=== PATIENT | male | born 1960 | race Caucasian/White ===

== ENCOUNTER 2018-09-20 06:44 | Inpatient (IN) | payer OTHER ==
[~2018-09-20 06:44] MED LIST: Acetaminophen 1,000 MG in Premix Bag 1 BAG IV SCH; Famotidine 20 MG/2 ML SDV IVPUSH SCH; Ropivacaine 49.25 ML, Ketorolac 30 MG, EPINEPHrine 0.5 MG, cloNIDine 80 MCG in Sodium C... INJECT SCH; Scopolamine 1.5 MG Transdermal Patch TRDERM SCH
[2018-09-20] MEDS: Lactated Ringers 1,000 ML IV SCH ×2 (07:45→21:52)
[2018-09-20] MEDS ORDERED: Tranexamic Acid 2,000 MG in Sodium Chloride 0.9% 100 ML IV ONE (08:00)
[2018-09-20] MEDS ORDERED: ceFAZolin 2 GM in Premix Bag 1 BAG IV SCH (08:00)
--- NOTE | 2018-09-20 08:24 | PCM.PREANE ---
Preanesthetic Assessment - Procedure Proposed Procedure: left total knee replacement - Anesthesia/Transfusion/Family Hx Anesthesia History: Prior Anesthesia Without Reaction (severe bradycardia with colonoscopy) Other Type of Anesthesia Reaction Comment: Denies any known problem in past, no known family hx: problems Family History of Anesthesia Reaction: No Transfusion History: No Prior Transfusion(s) - Review of Systems General: No Symptoms Pulmonary: No Symptoms Cardiovascular: Other (HTN, high cholesterol) Gastrointestinal: Other (stomach flu two weeks ago) Neurological: No Symptoms Other: Reports: None - Physical Assessment NPO Status Date: 09/20/18 NPO Status Time: 00:00 O2 Sat by Pulse Oximetry: 96 Respiratory Rate: 16 Vital Signs: Last Vital Signs Temp 98.4 F 09/20/18 07:25 Pulse 62 09/20/18 07:25 Resp 16 09/20/18 07:25 BP 134/95 H 09/20/18 07:25 Pulse Ox 96 09/20/18 07:25 Height: 5 ft 11 in Weight: 113.398 kg ASA Class: 2 Mental Status: Alert & Oriented x3 Airway Class: Mallampati = 2 Dentition: Reports: Normal Dentition ROM/Head Extension: Full Lungs: Clear to Auscultation, Normal Respiratory Effort Cardiovascular: Regular Rate, Regular Rhythm - Allergies Allergies/Adverse Reactions: Allergies Allergy/AdvReac Type Severity Reaction Status Date / Time No Known Allergies Allergy Verified 09/16/18 09:27 - Blood Blood Available: No Product(s) Available: None - Anesthesia Plan Pre-Op Medication Ordered: None - Acknowledgements Anesthesia Type Planned: Spinal Pt an Appropriate Candidate for the Planned Anesthesia: Yes Alternatives and Risks of Anesthesia Discussed w Pt/Guardian: Yes Pt/Guardian Understands and Agrees with Anesthesia Plan: Yes PreAnesthesia Questionnaire HEENT History: Reports: Other (See Below) Other HEENT History: wears glasses Cardiovascular History: Reports: High Cholesterol, Hypertension Respiratory History: Reports: None Gastrointestinal History: Reports: None Other Gastrointestinal History: History ADenocarcinoma colon polyp Genitourinary History: Reports: None, Other (See Below) Musculoskeletal History: Reports: Osteoarthritis Neurological History: Reports: None Psychiatric History: Reports: None Endocrine/Metabolic History: Reports: Obesity/BMI 30+ Hematologic History: Reports: None Immunologic History: Reports: None Oncologic (Cancer) History: Reports: None Dermatologic History: Reports: Other (See Below) Other Dermatologic History: has a bleeding spot on his back ("mole")- will be removed by Primary Care doctor - Past Surgical History GI Surgical History: Reports: Colonoscopy Musculoskeletal Surgical History: Reports: Arthroscopic Knee - SUBSTANCE USE Smoking Status *Q: Current Every Day Smoker Tobacco Use Within Last Twelve Months: Smokeless Tobacco Recreational Drug Use History: No - HOME MEDS Home Medications: Home Meds Chlorthalidone 12.5 mg PO BRK 10/20/14 [History] Lisinopril 40 mg PO QAM 10/20/14 [History] atorvaSTATin Calcium [Atorvastatin Calcium] 20 mg PO DAILY 10/20/14 [History] Aspirin [Low Dose Aspirin EC] 81 mg PO DAILY 09/20/18 [History] Multivitamin [Daily Multiple Vitamin] 1 tab PO DAILY 09/20/18 [History] - CURRENT (IN HOUSE) MEDS Current Meds: Current Medications Famotidine (Pepcid) 40 mg IVPUSH ONARRIVE [facility] Last Admin: 09/20/18 07:51 Dose: 40 mg Acetaminophen 1,000 mg/ Premix 100 mls @ 400 mls/hr IV ONARRIVE [facility] Last Admin: 09/20/18 07:51 Dose: 400 mls/hr Cefazolin Sodium/Dextrose 2 gm (/ Premix) 50 mls @ 100 mls/hr IV ONCALL [facility] Ropivacaine 49.25 ml/Ketorolac Tromethamine 30 mg/Epinephrine HCl 0.5 mg/ Clonidine HCl 80 mcg/ Sodium Chloride 75 mls @ 50 mls/sec INJECT ASDIRECTED [facility] Lactated Ringer's (Ringers, Lactated) 1,000 mls @ 100 mls/hr IV ASDIRECTED [facility] Scopolamine (Transderm-Scop) 1.5 mg TRDERM ONARRIVE [facility] Last Admin: 09/20/18 07:51 Dose: 1.5 mg Discontinued Medications Tranexamic Acid 2,000 mg/ (Sodium Chloride) 120 mls @ 600 mls/hr IV ASDIRECTED ONE Stop: 09/20/18 08:11 Tranexamic Acid (Cyklokapron) Confirm Administered Dose 2,000 mg .ROUTE .STK- MED ONE Stop: 09/20/18 07:42
[2018-09-20] MEDS ORDERED: Midazolam 1 MG/ML 2 ML SDV ONE (08:59)
[2018-09-20] MEDS ORDERED: fentaNYL 100 MCG/2 ML SDV ONE (08:59)
[2018-09-20] MEDS ORDERED: Propofol 200 MG/20 ML SDV ONE ×2 (08:59→10:09)
[2018-09-20] MEDS ORDERED: Ketamine 500 mg/10 ML MDV ONE (09:50)
[2018-09-20] MEDS ORDERED: fentaNYL 100 MCG/2 ML SDV IVPUSH PRN (10:05)
[2018-09-20] MEDS ORDERED: HYDROmorphone 2 MG/ML SDV IVPUSH ONE (10:05)
[2018-09-20] MEDS ORDERED: Glycopyrrolate 0.2 MG/ML SDV ONE (10:57)
[2018-09-20] MEDS ORDERED: diphenhydrAMINE 25 MG Cap PO PRN (11:03)
[2018-09-20] MEDS ORDERED: Sodium Chloride 0.9% 2.5 ML Syringe FLUSH PRN (11:03)
[2018-09-20] MEDS ORDERED: Aluminum Hydroxide/Magnesium Hydroxide/Simethicone Susp 30 ML Cup PO PRN (11:03)
[2018-09-20] MEDS ORDERED: Bisacodyl 10 MG Supp RECTAL PRN (11:03)
[2018-09-20] MEDS ORDERED: Docusate Sodium 100 MG Cap PO PRN (11:03)
[2018-09-20] MEDS ORDERED: Sodium Chloride 0.9% 10 ML Syringe FLUSH PRN (11:03)
[2018-09-20] MEDS ORDERED: Ondansetron 4 MG/2 ML SDV IVPUSH PRN (11:03)
[2018-09-20] MEDS ORDERED: Morphine PF 30 MG/30 ML PCA Vial IV PRN (11:03)
--- NOTE | 2018-09-20 11:17 | PCM.OPNOTE ---
- General Post-Op/Procedure Note Date of Surgery/Procedure: 09/20/18 Operative Procedure(s): L TKA Post-Op Diagnosis: DJD left knee Anesthesia Technique: Moderate Sedation, Spinal Primary Surgeon: Kimberly Peguero Post Hole Digging Machine Operator: Loida Poole in mLs: 50 Condition: Good Free Text/Narrative:: tt=58 min #[id number]
[2018-09-20] MEDS: Ketorolac 30 MG/ML SDV IVPUSH SCH ×3 (11:40→23:56)
[2018-09-20] MEDS: oxyCODONE 5 MG Tab PO PRN ×2 (14:15→21:49)
--- NOTE | 2018-09-20 14:38 | CR ---
EXAMINATION: Left knee HISTORY: Postop COMPARISON: 05/03/2018 TECHNIQUE: 2 views FINDINGS/IMPRESSION: Left total knee hardware is demonstrated in good position and alignment. Postoperative soft tissue changes noted.
[2018-09-20] MEDS: Acetaminophen 1,000 MG in Premix Bag 1 BAG IV SCH ×2 (16:13→21:47)
[2018-09-20] MEDS: ceFAZolin 2 GM in Premix Bag 1 BAG IV SCH (17:58)
--- NOTE | 2018-09-20 18:01 | OR ---
SURGEON: Kimberly Peguero MD DATE OF PROCEDURE: 09/20/2018 PREOPERATIVE DIAGNOSIS: Degenerative joint disease, left knee, tricompartmental. POSTOPERATIVE DIAGNOSIS: Degenerative joint disease, left knee, tricompartmental. PROCEDURE: Left total knee arthroplasty using patient specific instrumentation. PRIMARY SURGEON: Kimberly Peguero MD. WOOL WASHER FEEDER: SHELBY Rodríguez. REASON AND ROLE FOR WOOL WASHER FEEDER: Retraction, prepping, draping, positioning, and closure assistance. ANESTHESIA: Spinal with sedation. ESTIMATED BLOOD LOSS: 50 mL. TOURNIQUET TIME: 58 minutes. COMPLICATIONS: None. DVT PROPHYLAXIS: PAS boot and ROGELIO hose to the nonoperative leg. IMPLANTS USED: Tere Persona femoral component size 8 standard (LPS), tibial component size F, 10 mm all-polyethylene articular surface, and 35 mm all-polyethylene patella. INTRAOPERATIVE FINDINGS: Showed severe tricompartmental degenerative changes with complete eburnation of the bone along the medial femoral condyle. A large dystrophic calcification was also found in the suprapatellar space. No significant synovitis was noted. BRIEF HISTORY: Giovanni is a 58-year-old male, who has had complaint of progressive left knee pain. He had failed conservative treatment. Due to his lack of response to conservative treatment, I did recommend surgical intervention. The risks and goals of procedure were discussed with the patient and were documented preoperatively. He agreed to proceed. DESCRIPTION OF PROCEDURE: The patient was properly identified and brought to the operating room. The patient was then transferred from the operating room cart and placed on the operating table in a supine position. Anesthesia was administered by the anesthesia staff. After adequate anesthesia was obtained, a well-padded tourniquet was applied to the surgical lower extremity. Castillo catheter was placed. The lower extremity was then prepped in standard fashion using ChloraPrep solution. It was then sterilely draped. A time-out was performed to ensure correct site and procedure. Preoperative antibiotics were given along with one gram of tranexamic acid IV. The surgical site had been marked preoperatively. An Esmarch was used to exsanguinate the right lower extremity and the tourniquet was inflated. An incision was made over the anterior aspect of the knee. The subcutaneous tissues were dissected down to the level of the fascia. A medial parapatellar approach to the knee was made. A portion of the infrapatellar fat pad was then excised. The distal femur was then exposed. The femoral patient-specific cutting guide was then placed. Pins were also placed. The distal femoral cutting block was placed and the distal femoral cut was made. Instrumentation was then removed. Both Whitesides' line and the epicondylar axis were then marked with electrocautery. The 4-in-1 cutting block was placed. This was placed in a slightly externally rotated position, which corresponded well with the previously drawn lines. The cutting guide was then pinned into position. An Ray wing guide was used to check the depth of resection of our anterior condylar cut and it was felt that no notching would occur. The anterior condylar cut was then made followed by the posterior condylar cut. Both the posterior chamfer and anterior chamfer cuts were then made. The cutting block was then removed along with the excess bony remnants. We then turned our attention to the tibia. The anterior cruciate ligament and posterior cruciate ligament were released and a posterior cruciate ligament retractor was placed to allow the tibia to be pulled anteriorly. The tibial patient-specific guide was then placed on the proximal tibia. This fit anatomically. The pins were then placed. The proximal tibia cutting guide was then placed and screwed into position. The proximal tibial resection was then made with care being taken to protect the patellar tendon. The bony resection was then removed. The remainder of the medial and lateral meniscus were then excised. Care was taken to protect the popliteus tendon. The tibia was then sized to the appropriate size. The distal femur was then elevated. The posterior capsule was stripped off the distal femur both medially and laterally. The posterior capsule along with the medial and lateral gutters were then injected with a standard mixture consisting of clonidine, epinephrine, Toradol, and Ropivacaine, unless any allergies were found preoperatively. The femoral component was then placed onto the distal femur in a slightly lateral position. This fit the femur well. A box cut was then made without difficulty. This was then removed. The tibial trial along with the polyethylene liner was then placed. The knee came easily into full extension and was stable to varus and valgus stressing both in full extension and flexion. Any additional releases were performed at this time. We then returned our attention to the patella. The patella was everted and towel clamps were used to hold the patella in position. It was resected to a 15 millimeter thickness. It was then sized to the appropriate size. It was prepared in the usual fashion after placing the predetermined size clamps. This was placed in a slightly superior and medial position. The clamp was then removed. The patellar trial button was placed. The knee was taken through a range of motion using the no-touch technique. The patella tracked centrally. A drop jim was then placed to check alignment. All instruments were then removed from the knee. The tibial sizer was then placed on the tibia. The tibia was prepared in the usual fashion using the reamer and broach. This was then removed. All bony surfaces were copiously irrigated with Pulsavac solution. They were then suctioned dry. Cement was prepared on the back table in the usual manner. Once it was prepared, the bone ends were again suctioned dry. The tibia was cemented into place first. This was malleted into position. Excess cement was then cleared. The femur was then placed in a similar manner. We placed the polyethylene trial into place and the knee was brought into full extension. An axial load was placed while keeping the knee in full extension. The patella button was also cemented into position and the clamp was used to hold this in place as the cement was allowed to cure. The wound was again copiously irrigated with saline solution using a Pulsavac hvac technician residential. Following this 1 g of tranexamic acid was applied to the wound topically. After we had adequate curing of the cement, the knee was again taken through a range of motion. The size of the polyethylene was then determined. The polyethylene trial was then removed. The tibial tray was suctioned to make sure there was no remaining soft tissue or cement. Excess cement was cleared from around the edges of the prosthesis as well. The tourniquet was then deflated. We were able to observe for any excess bleeding and none was noted. Electrocautery was used to maintain hemostasis. An additional gram of tranexamic acid was given IV. The retractors were again placed and the predetermined polyethylene was then placed. This was locked into position without difficulty. The knee was again taken through a range of motion with no change from the prior exam. The fascial layer was closed with Number One Vicryl. The subcutaneous tissues were closed with 2-0 Vicryl. The skin was closed with brayden. Xeroform gauze was placed over the wound and a bulky dressing was applied. The patient was then awakened from anesthesia and transferred back to the operating room cart. They were brought to the recovery room in stable condition. All needle and sponge counts were correct. AKIRA / ALYCE /[id number]
[2018-09-21] MEDS: ceFAZolin 2 GM in Premix Bag 1 BAG IV SCH (01:43)
[2018-09-21] MEDS: Acetaminophen 1,000 MG in Premix Bag 1 BAG IV SCH (03:51)
[2018-09-21] MEDS: oxyCODONE 5 MG Tab PO PRN (03:59)
[2018-09-21] MEDS ORDERED: Morphine 2 MG/ML Syringe IVPUSH PRN (06:00)
[2018-09-21] MEDS ORDERED: Chlorthalidone 25 MG Tab PO SCH (08:00)
--- NOTE | 2018-09-21 08:25 | PCM.SURGPN ---
- General Info Date of Service: 09/21/18 (0730) Date of Surgery/Procedure: 09/20/18 (s/p Left TKA) POD#: 1 Admission Diagnosis/Problem: Knee pain Functional Status: Reports: Pain Controlled, Tolerating Diet (had a late lunch and supper last night without n/v), Ambulating. Denies: Urinating (dobbins catheter removed an hour prior. Has not voided yet) - Review of Systems General: Reports: No Symptoms. Denies: Fever, Chills HEENT: Reports: Post Nasal Drip Pulmonary: Reports: No Symptoms, Cough (has had cough from PND prior to surgery date). Denies: Shortness of Breath Cardiovascular: Reports: No Symptoms. Denies: Chest Pain Gastrointestinal: Reports: No Symptoms. Denies: Abdominal Pain, Nausea, Vomiting Musculoskeletal: Reports: Joint Pain Neurological: Reports: No Symptoms Psychiatric: Reports: No Symptoms - Patient Data Vitals - Most Recent: Last Vital Signs Temp 36.8 C 09/21/18 07:58 Pulse 62 09/21/18 07:58 Resp 18 09/21/18 07:58 BP 124/83 09/21/18 07:58 Pulse Ox 94 L 09/21/18 07:58 Weight - Most Recent: 113.398 kg I&O - Last 24 Hours: Intake & Output 09/20/18 09/21/18 09/21/18 22:59 06:59 14:59 Intake Total 1170 2748 Output Total 100 1550 Balance 1070 1198 Lab Results Last 24 Hrs: Laboratory Results - last 24 hr 09/20/18 09/21/18 Range/Units 07:48 05:50 Hgb 12.1 L (13.0-17.0) g/dL Hct 35.8 L (38.0-50.0) % Blood Type AB POSITIVE Antibody Screen NEGATIVE Med Orders - Current: Current Medications Al Hydroxide/Mg Hydroxide (Mag-Al Plus) 30 ml PO Q4H PRN PRN Reason: Indigestion Aspirin (Aspirin) 325 mg PO BID [facility] Atorvastatin Calcium (Lipitor) 20 mg PO DAILY [facility] Bisacodyl (Dulcolax) 10 mg RECTAL DAILY PRN PRN Reason: Constipation Celecoxib (Celebrex) 200 mg PO BID [facility] Chlorthalidone (Chlorthalidone) 12.5 mg PO BRK [facility] Diphenhydramine HCl (Benadryl) 25 - 50 mg PO Q6H PRN PRN Reason: Itching Docusate Sodium (Colace) 100 mg PO BID PRN PRN Reason: Constipation Famotidine (Pepcid) 40 mg IVPUSH ONARRIVE [facility] Last Admin: 09/20/18 07:51 Dose: 40 mg Famotidine (Pepcid) 40 mg PO DAILY [facility] Fentanyl (Sublimaze) 50 mcg IVPUSH Q5M PRN PRN Reason: Pain (severe 7-10) Stop: 09/21/18 10:05 Acetaminophen 1,000 mg/ Premix 100 mls @ 400 mls/hr IV ONARRIVE [facility] Last Infusion: 09/20/18 08:06 Dose: Infused Cefazolin Sodium/Dextrose 2 gm (/ Premix) 50 mls @ 100 mls/hr IV ONCALL [facility] Ropivacaine 49.25 ml/Ketorolac Tromethamine 30 mg/Epinephrine HCl 0.5 mg/ Clonidine HCl 80 mcg/ Sodium Chloride 75 mls @ 50 mls/sec INJECT ASDIRECTED [facility] Lactated Ringer's (Ringers, Lactated) 1,000 mls @ 100 mls/hr IV ASDIRECTED [facility] Last Admin: 09/20/18 21:52 Dose: 100 mls/hr Lisinopril (Prinivil) 40 mg PO QAM [facility] Morphine Sulfate (Morphine) 1 - 3 mg IVPUSH Q3H PRN PRN Reason: Pain Ondansetron HCl (Zofran) 4 mg IVPUSH Q6H PRN PRN Reason: Nausea/Vomiting Oxycodone/Acetaminophen (Percocet 325-5 Mg) 1 - 2 tab PO Q4H PRN PRN Reason: Pain Polyethylene Glycol (Miralax) 17 gm PO DAILY [facility] Scopolamine (Transderm-Scop) 1.5 mg TRDERM ONARRIVE [facility] Last Admin: 09/20/18 07:51 Dose: 1.5 mg Sodium Chloride (Saline Flush) 10 ml FLUSH ASDIRECTED PRN PRN Reason: Keep Vein Open Sodium Chloride (Saline Flush) 2.5 ml FLUSH ASDIRECTED PRN PRN Reason: Keep Vein Open Discontinued Medications Fentanyl (Sublimaze) Confirm Administered Dose 100 mcg .ROUTE .[facility]-MED ONE Stop: 09/20/18 09:00 Glycopyrrolate (Robinul) Confirm Administered Dose 0.2 mg .ROUTE .STK-MED ONE Stop: 09/20/18 10:58 Hydromorphone HCl (Dilaudid) 2 mg IVPUSH ONETIME ONE Stop: 09/20/18 10:06 Last Admin: 09/20/18 13:51 Dose: Not Given Tranexamic Acid 2,000 mg/ (Sodium Chloride) 120 mls @ 600 mls/hr IV ASDIRECTED ONE Stop: 09/20/18 08:11 Last Admin: 09/20/18 13:51 Dose: Not Given Lidocaine HCl (Xylocaine-Mpf 1%) Confirm Administered Dose 5 mls @ as directed .ROUTE .STK-MED ONE Stop: 09/20/18 10:58 Acetaminophen 1,000 mg/ Premix 100 mls @ 400 mls/hr IV Q6H [facility] Stop: 09/21/18 04:14 Last Admin: 09/21/18 03:51 Dose: 400 mls/hr Cefazolin Sodium/Dextrose 2 gm (/ Premix) 50 mls @ 100 mls/hr IV Q8H [facility] Stop: 09/21/18 02:29 Last Admin: 09/21/18 01:43 Dose: 100 mls/hr Ketamine HCl (Ketalar) Confirm Administered Dose 500 mg .ROUTE .STK-MED ONE Stop: 09/20/18 09:51 Ketorolac Tromethamine (Toradol) 30 mg IVPUSH Q6H [facility] Stop: 09/21/18 05:00 Last Admin: 09/20/18 23:56 Dose: 30 mg Midazolam HCl (Versed 1 Mg/Ml) Confirm Administered Dose 2 mg .ROUTE .STK-MED ONE Stop: 09/20/18 09:00 Morphine Sulfate (Morphine Assembler Wire Mesh Gate 30 Mg In 30 Ml) 30 mg IV ASDIRECTED PRN; Protocol PRN Reason: Pain Stop: 09/21/18 06:00 Last Admin: 09/20/18 11:43 Dose: 30 mg Oxycodone HCl (Oxycodone) 5 - 10 mg PO Q4H PRN PRN Reason: Pain Stop: 09/21/18 08:00 Last Admin: 09/21/18 03:59 Dose: 10 mg Propofol (Diprivan 20 Ml) Confirm Administered Dose 400 mg .ROUTE .STK-MED ONE Stop: 09/20/18 09:00 Propofol (Diprivan 20 Ml) Confirm Administered Dose 200 mg .ROUTE .STK-MED ONE Stop: 09/20/18 10:10 Tranexamic Acid (Cyklokapron) Confirm Administered Dose 2,000 mg .ROUTE .STK- MED ONE Stop: 09/20/18 07:42 - Exam Wound/Incisions: Dressing Dry and Intact, No Drainage, Other (incision left knee well approximated with brayden. ). No: Erythema Quality Assessment: DVT Prophylaxis (SCDs on bilaterally. Start ASA today. Has been up in chair for meals.) General: Alert, Oriented, No Acute Distress HEENT: Pupils Equal Neck: Supple Lungs: Normal Respiratory Effort Cardiovascular: Regular Rate, Regular Rhythm GI/Abdominal Exam: Soft Extremities: Normal Inspection. No: Pedal Edema (AT/EHL/gastroc 5/5) Skin: Warm Neurological: No New Focal Deficit Psy/Mental Status: Alert, Normal Affect, Normal Mood - Problem List Review Problem List Initiated/Reviewed/Updated: Yes - My Orders Last 24 Hours: Active Orders 24 hr Category Date Time Status Communication Order [RC] PRN Care 09/20/18 11:03 Active Communication Order [RC] PRN Care 09/20/18 11:03 Active Insert Urinary Catheter [OM.PC] Q24H Care 09/20/18 08:00 Ordered Neurovascular Check [RC] Q2HR Care 09/20/18 11:03 Active Notify Provider Vital Signs [RC] ASDIRECTED Care 09/20/18 11:03 Active RT Incentive Spirometry [RC] Q1HWA Care 09/20/18 11:03 Active Urinary Catheter Removal [RC] ASDIRECTED Care 09/21/18 11:03 Active Vital Signs [RC] Q4H Care 09/20/18 11:03 Active Wound Care [RC] DAILY Care 09/20/18 11:03 Active PT Evaluation and Treatment [CONS] Routine Cons 09/20/18 11:03 Active Regular Diet [DIET] Diet 09/20/18 Lunch Active HEMOGLOBIN/HEMATOCRIT,HH [HEME] DAILY Lab 09/22/18 06:00 Ordered Acetaminophen/oxyCODONE [Percocet 325-5 MG] Med 09/21/18 06:00 Active 1 - 2 tab PO Q4H PRN Alum Hydrox/Mag Hydrox/Simeth [Mag-Al Plus] Med 09/20/18 11:03 Active 30 ml PO Q4H PRN Aspirin Med 09/21/18 09:00 Active 325 mg PO BID Bisacodyl [Dulcolax] Med 09/20/18 11:03 Active 10 mg RECTAL DAILY PRN Celecoxib [CeleBREX] Med 09/21/18 09:00 Active 200 mg PO BID Chlorthalidone Med 09/21/18 08:00 Active 12.5 mg PO BRK Docusate Sodium [Colace] Med 09/20/18 11:03 Active 100 mg PO BID PRN Famotidine [Pepcid] Med 09/21/18 09:00 Active 40 mg PO DAILY Lisinopril [Prinivil] Med 09/21/18 09:00 Active 40 mg PO QAM Morphine Med 09/21/18 06:00 Active 1 - 3 mg IVPUSH Q3H PRN Ondansetron [Zofran] Med 09/20/18 11:03 Active 4 mg IVPUSH Q6H PRN Polyethylene Glycol 3350 [MiraLAX] Med 09/21/18 09:00 Active 17 gm PO DAILY Sodium Chloride 0.9% [Saline Flush] Med 09/20/18 11:03 Active 10 ml FLUSH ASDIRECTED PRN Sodium Chloride 0.9% [Saline Flush] Med 09/20/18 11:03 Active 2.5 ml FLUSH ASDIRECTED PRN atorvaSTATin [Lipitor] Med 09/21/18 09:00 Active 20 mg PO DAILY ceFAZolin [Ancef] 2 gm Med 09/20/18 08:00 Active Premix Bag 1 bag IV ONCALL diphenhydrAMINE [Benadryl] Med 09/20/18 11:03 Active 25 - 50 mg PO Q6H PRN fentaNYL [Sublimaze] Med 09/20/18 10:05 Active 50 mcg IVPUSH Q5M PRN Convert IV to Saline Lock [OM.PC] PRN Oth 09/20/18 11:15 Ordered Convert IV to Saline Lock [OM.PC] PRN Oth 09/21/18 11:15 Ordered Ice Therapy [OM.PC] Routine Oth 09/20/18 11:03 Ordered Sequential Compression Device [OM.PC] Routine Oth 09/20/18 08:00 Ordered Medication Orders Al Hydroxide/Mg Hydroxide (Mag-Al Plus) 30 ml PO Q4H PRN PRN Reason: Indigestion Aspirin (Aspirin) 325 mg PO BID [facility] Atorvastatin Calcium (Lipitor) 20 mg PO DAILY [facility] Bisacodyl (Dulcolax) 10 mg RECTAL DAILY PRN PRN Reason: Constipation Celecoxib (Celebrex) 200 mg PO BID [facility] Chlorthalidone (Chlorthalidone) 12.5 mg PO BRK [facility] Diphenhydramine HCl (Benadryl) 25 - 50 mg PO Q6H PRN PRN Reason: Itching Docusate Sodium (Colace) 100 mg PO BID PRN PRN Reason: Constipation Famotidine (Pepcid) 40 mg IVPUSH ONARRIVE [facility] Last Admin: 09/20/18 07:51 Dose: 40 mg Famotidine (Pepcid) 40 mg PO DAILY [facility] Fentanyl (Sublimaze) 50 mcg IVPUSH Q5M PRN PRN Reason: Pain (severe 7-10) Stop: 09/21/18 10:05 Acetaminophen 1,000 mg/ Premix 100 mls @ 400 mls/hr IV ONARRIVE [facility] Last Infusion: 09/20/18 08:06 Dose: 400 mls/hr Admin: 09/20/18 07:51 Dose: 400 mls/hr Cefazolin Sodium/Dextrose 2 gm (/ Premix) 50 mls @ 100 mls/hr IV ONCALL [facility] Ropivacaine 49.25 ml/Ketorolac Tromethamine 30 mg/Epinephrine HCl 0.5 mg/ Clonidine HCl 80 mcg/ Sodium Chloride 75 mls @ 50 mls/sec INJECT ASDIRECTED [facility] Lactated Ringer's (Ringers, Lactated) 1,000 mls @ 100 mls/hr IV ASDIRECTED [facility] Last Admin: 09/20/18 21:52 Dose: 100 mls/hr Infusion: 09/20/18 17:45 Dose: 100 mls/hr Admin: 09/20/18 07:45 Dose: 100 mls/hr Lisinopril (Prinivil) 40 mg PO QAM [facility] Morphine Sulfate (Morphine) 1 - 3 mg IVPUSH Q3H PRN PRN Reason: Pain Ondansetron HCl (Zofran) 4 mg IVPUSH Q6H PRN PRN Reason: Nausea/Vomiting Oxycodone/Acetaminophen (Percocet 325-5 Mg) 1 - 2 tab PO Q4H PRN PRN Reason: Pain Polyethylene Glycol (Miralax) 17 gm PO DAILY [facility] Scopolamine (Transderm-Scop) 1.5 mg TRDERM ONARRIVE [facility] Last Admin: 09/20/18 07:51 Dose: 1.5 mg Sodium Chloride (Saline Flush) 10 ml FLUSH ASDIRECTED PRN PRN Reason: Keep Vein Open Sodium Chloride (Saline Flush) 2.5 ml FLUSH ASDIRECTED PRN PRN Reason: Keep Vein Open - Assessment Assessment (Free Text/Narrative):: s/p LEFT TKA post-hemorrhagic anemia - Plan Plan (Free Text/Narrative):: Overall, Giovanni is doing well. VSS/afebrile. Tolerating diet. No N/V. Pain controlled with oral narcotics. Completed 24 hours of antibiotic with 2gm Ancef IV. Surgical dressing was dry & intact. Removed, and large AquaCell was applied. Surgical site clean, dry and intact. No active drainage. Minimal swelling. No erythema. Utilizing polarcare ice therapy. LLE neurovascular exam WNL. DVT prophylaxis includes SCDs bilaterally and will start ASA today. Dobbins catheter removed. Will need to void prior to discharge today. Once he has PT (and in particular walking up/down stairs), he will be ready for discharge. PT is scheduled on September 23, 2018 at [facility] in [facility]. Rx written for FWW, pain medication, ASA, Celebrex, Colace and MiraLax.
[2018-09-21] MEDS: Acetaminophen/oxyCODONE 325-5 MG Tab PO PRN ×2 (08:30→14:29)
[2018-09-21] MEDS ORDERED: Polyethylene Glycol 3350 Powder 17 GM Packet PO SCH (09:00)
[2018-09-21] MEDS ORDERED: Aspirin 325 MG Tab PO SCH (09:00)
[2018-09-21] MEDS ORDERED: atorvaSTATin 20 MG Tab PO SCH (09:00)
[2018-09-21] MEDS ORDERED: Lisinopril 10 MG Tab PO SCH (09:00)
[2018-09-21] MEDS ORDERED: Celecoxib 100 MG Cap PO SCH (09:00)
[2018-09-21] MEDS ORDERED: Famotidine 20 MG Tab PO SCH (09:00)
--- NOTE | 2018-09-21 09:46 | PCM48HPAN ---
Post Anesthesia Note - EVALUATION WITHIN 48HRS OF ANESTHETIC Vital Signs in Normal Range: Yes Patient Participated in Evaluation: Yes Respiratory Function Stable: Yes Airway Patent: Yes Cardiovascular Function Stable: Yes Hydration Status Stable: Yes Pain Control Satisfactory: Yes Nausea and Vomiting Control Satisfactory: Yes Mental Status Recovered: Yes Resp Rate: 18 Blood Pressure: 124/83 - COMMENTS/OBSERVATIONS Free Text/Narrative:: No anesthesia problems. Some minor blood at pinile meatus due to hard placement of urinary catheter (BPH).
[2018-09-21 11:45] VITALS: BP 141/87
--- NOTE | 2018-09-24 08:48 | PCM.DCSUM1 ---
Discharge Summary - Hospital Course Free Text/Narrative:: DOCUMENT # [id number] - Discharge Data Discharge Date: 09/21/18 Discharge Disposition: Home, Self-Care 01 Condition: Good - Patient Summary/Data Operative Procedure(s) Performed: L TKA Consults: Consultations 09/20/18 11:03 PT Evaluation and Treatment [CONS] Routine - Patient Instructions Other/Special Instructions: Refer to Dr. Kimberly Peguero's 'Post-operative patient instructions for TOTAL KNEE ARTHROPLASTY' for information on Pain, Activity, Wound Care, Bathing & Support stockings. - Discharge Plan Prescriptions/Med Rec: Acetaminophen/oxyCODONE [Percocet 325-5 MG] 1 - 2 tab PO Q4H PRN #60 tablet PRN Reason: Pain Aspirin 325 mg PO BID #60 tablet Celecoxib [CeleBREX] 200 mg PO DAILY #30 cap Docusate Sodium [Colace] 100 mg PO BID PRN #60 cap PRN Reason: Constipation Polyethylene Glycol 3350 [MiraLAX] 17 gm PO DAILY #600 gram Home Medications: Home Meds Chlorthalidone 12.5 mg PO BRK 10/20/14 [History] Lisinopril 40 mg PO QAM 10/20/14 [History] atorvaSTATin Calcium [Atorvastatin Calcium] 20 mg PO DAILY 10/20/14 [History] Acetaminophen/oxyCODONE [Percocet 325-5 MG] 1 - 2 tab PO Q4H PRN #60 tablet 01/29 [Rx] Aspirin 325 mg PO BID #60 tablet 09/20/18 [Rx] Celecoxib [CeleBREX] 200 mg PO DAILY #30 cap 09/20/18 [Rx] Docusate Sodium [Colace] 100 mg PO BID PRN #60 cap 09/20/18 [Rx] Multivitamin [Daily Multiple Vitamin] 1 tab PO DAILY 09/20/18 [History] Polyethylene Glycol 3350 [MiraLAX] 17 gm PO DAILY #600 gram 09/20/18 [Rx] Patient Handouts: Acetaminophen; Oxycodone tablets, Celecoxib capsules, Total Knee Replacement, Care After, [id number], Aspirin, ASA oral tablets, Docusate capsules, Polyethylene Glycol powder Referrals: Kimberly Peguero MD [Physician] - 10/28/18 10:00 am Loida Poole NP [Nurse Practitioner] - 09/30/18 9:40 am - Discharge Summary/Plan Comment DC Time >30 min.: No - Patient Data Vitals - Most Recent: Last Vital Signs Temp 37.0 C 09/21/18 11:00 Pulse 65 09/21/18 11:00 Resp 16 09/21/18 11:00 BP 141/87 H 09/21/18 11:00 Pulse Ox 95 09/21/18 11:00 Weight - Most Recent: 113.398 kg Med Orders - Current: Current Medications Discontinued Medications Al Hydroxide/Mg Hydroxide (Mag-Al Plus) 30 ml PO Q4H PRN PRN Reason: Indigestion Aspirin (Aspirin) 325 mg PO BID [facility] Last Admin: 09/21/18 08:29 Dose: 325 mg Atorvastatin Calcium (Lipitor) 20 mg PO DAILY [facility] Last Admin: 09/21/18 08:29 Dose: 20 mg Bisacodyl (Dulcolax) 10 mg RECTAL DAILY PRN PRN Reason: Constipation Celecoxib (Celebrex) 200 mg PO BID [facility] Last Admin: 09/21/18 08:29 Dose: 200 mg Chlorthalidone (Chlorthalidone) 12.5 mg PO BRK [facility] Last Admin: 09/21/18 08:25 Dose: 12.5 mg Diphenhydramine HCl (Benadryl) 25 - 50 mg PO Q6H PRN PRN Reason: Itching Docusate Sodium (Colace) 100 mg PO BID PRN PRN Reason: Constipation Famotidine (Pepcid) 40 mg IVPUSH ONARRIVE [facility] Last Admin: 09/20/18 07:51 Dose: 40 mg Famotidine (Pepcid) 40 mg PO DAILY [facility] Last Admin: 09/21/18 08:24 Dose: 40 mg Fentanyl (Sublimaze) Confirm Administered Dose 100 mcg .ROUTE .STK-MED ONE Stop: 09/20/18 09:00 Fentanyl (Sublimaze) 50 mcg IVPUSH Q5M PRN PRN Reason: Pain (severe 7-10) Stop: 09/21/18 10:05 Glycopyrrolate (Robinul) Confirm Administered Dose 0.2 mg .ROUTE .STK-MED ONE Stop: 09/20/18 10:58 Hydromorphone HCl (Dilaudid) 2 mg IVPUSH ONETIME ONE Stop: 09/20/18 10:06 Last Admin: 09/20/18 13:51 Dose: Not Given Acetaminophen 1,000 mg/ Premix 100 mls @ 400 mls/hr IV ONARRIVE [facility] Last Infusion: 09/20/18 08:06 Dose: Infused Cefazolin Sodium/Dextrose 2 gm (/ Premix) 50 mls @ 100 mls/hr IV ONCALL [facility] Ropivacaine 49.25 ml/Ketorolac Tromethamine 30 mg/Epinephrine HCl 0.5 mg/ Clonidine HCl 80 mcg/ Sodium Chloride 75 mls @ 50 mls/sec INJECT ASDIRECTED [facility] Lactated Ringer's (Ringers, Lactated) 1,000 mls @ 100 mls/hr IV ASDIRECTED [facility] Last Admin: 09/20/18 21:52 Dose: 100 mls/hr Tranexamic Acid 2,000 mg/ (Sodium Chloride) 120 mls @ 600 mls/hr IV ASDIRECTED ONE Stop: 09/20/18 08:11 Last Admin: 09/20/18 13:51 Dose: Not Given Lidocaine HCl (Xylocaine-Mpf 1%) Confirm Administered Dose 5 mls @ as directed .ROUTE .STK-MED ONE Stop: 09/20/18 10:58 Acetaminophen 1,000 mg/ Premix 100 mls @ 400 mls/hr IV Q6H [facility] Stop: 09/21/18 04:14 Last Admin: 09/21/18 03:51 Dose: 400 mls/hr Cefazolin Sodium/Dextrose 2 gm (/ Premix) 50 mls @ 100 mls/hr IV Q8H [facility] Stop: 09/21/18 02:29 Last Admin: 09/21/18 01:43 Dose: 100 mls/hr Ketamine HCl (Ketalar) Confirm Administered Dose 500 mg .ROUTE .STK-MED ONE Stop: 09/20/18 09:51 Ketorolac Tromethamine (Toradol) 30 mg IVPUSH Q6H [facility] Stop: 09/21/18 05:00 Last Admin: 09/20/18 23:56 Dose: 30 mg Lisinopril (Prinivil) 40 mg PO QAM [facility] Last Admin: 09/21/18 08:27 Dose: 40 mg Midazolam HCl (Versed 1 Mg/Ml) Confirm Administered Dose 2 mg .ROUTE .STK-MED ONE Stop: 09/20/18 09:00 Morphine Sulfate (Morphine Utility Technician 30 Mg In 30 Ml) 30 mg IV ASDIRECTED PRN; Protocol PRN Reason: Pain Stop: 09/21/18 06:00 Last Admin: 09/20/18 11:43 Dose: 30 mg Morphine Sulfate (Morphine) 1 - 3 mg IVPUSH Q3H PRN PRN Reason: Pain Ondansetron HCl (Zofran) 4 mg IVPUSH Q6H PRN PRN Reason: Nausea/Vomiting Oxycodone HCl (Oxycodone) 5 - 10 mg PO Q4H PRN PRN Reason: Pain Stop: 09/21/18 08:00 Last Admin: 09/21/18 03:59 Dose: 10 mg Oxycodone/Acetaminophen (Percocet 325-5 Mg) 1 - 2 tab PO Q4H PRN PRN Reason: Pain Last Admin: 09/21/18 14:29 Dose: 1 tab Polyethylene Glycol (Miralax) 17 gm PO DAILY [facility] Last Admin: 09/21/18 08:30 Dose: 17 gm Propofol (Diprivan 20 Ml) Confirm Administered Dose 400 mg .ROUTE .STK-MED ONE Stop: 09/20/18 09:00 Propofol (Diprivan 20 Ml) Confirm Administered Dose 200 mg .ROUTE .STK-MED ONE Stop: 09/20/18 10:10 Scopolamine (Transderm-Scop) 1.5 mg TRDERM ONARRIVE [facility] Last Admin: 09/20/18 07:51 Dose: 1.5 mg Sodium Chloride (Saline Flush) 10 ml FLUSH ASDIRECTED PRN PRN Reason: Keep Vein Open Sodium Chloride (Saline Flush) 2.5 ml FLUSH ASDIRECTED PRN PRN Reason: Keep Vein Open Tranexamic Acid (Cyklokapron) Confirm Administered Dose 2,000 mg .ROUTE .STK- MED ONE Stop: 09/20/18 07:42
== END 2018-09-21 15:00 | disposition home or self-care (01) | DRG 470 ==
LOC: MW.SDS 06:44 → MW.MS 13:02 → MW.SDS 13:46 → MW.MS 13:46
PROVIDERS: ADMIT Orthopaedic Surgery; ATTEND Orthopaedic Surgery
PROC: 0SRD0J9 Replacement of Left Knee Joint with Synthetic Substitute, Cemented, Open Approach (ICD-10-PCS; principal; 2018-09-20)
DX: M17.12 Unilateral primary osteoarthritis, left knee (principal); D62 Acute posthemorrhagic anemia; E78.5 Hyperlipidemia, unspecified; I10 Essential (primary) hypertension; E66.9 Obesity, unspecified; F17.210 Nicotine dependence, cigarettes, uncomplicated; Z79.82 Long term (current) use of aspirin; Z79.899 Other long term (current) drug therapy; Z85.038 Personal history of other malignant neoplasm of large intestine; Z68.34 Body mass index [BMI] 34.0-34.9, adult
CPT/HCPCS: 01402; 36415; 73560-26-LT; 73560-LT; 85014; 85018; 86850; 86900; 86901; 97110-GP; 97116-GP; 97161-GP; A4217; A9270-GY; C1713; C1776; J0131; J0171; J0690; J0735; J1885; J2001; J2250; J2274; J2704; J2795; J3010; J3490; J7050; J7120

== ENCOUNTER 2024-10-08 16:19 | Emergency (ER) | payer BC, OTHER ==
[2024-10-08 17:14] VITALS: BP 139/78
[2024-10-08] MEDS: Cyclobenzaprine 10 MG Tab PO ONE (18:43)
[2024-10-08 19:09] VITALS: PULSE 65
== END 2024-10-08 19:09 | disposition home or self-care (01) ==
LOC: MW.ED 16:19
DX: S43.401A Unspecified sprain of right shoulder joint, initial encounter (principal); E78.00 Pure hypercholesterolemia, unspecified; I10 Essential (primary) hypertension; E66.9 Obesity, unspecified; Z79.899 Other long term (current) drug therapy; Z79.82 Long term (current) use of aspirin; Z86.16 Personal history of COVID-19; X58.XXXA Exposure to other specified factors, initial encounter
CPT/HCPCS: 73030; 99284; A9270; 99282

== ENCOUNTER 2024-10-09 13:59 | Emergency (ER) | payer OTHER ==
[2024-10-09] MEDS ORDERED: Sodium Chloride 0.9% 2.5 ML Syringe FLUSH PRN (15:02)
[2024-10-09] MEDS ORDERED: Sodium Chloride 0.9% 10 ML Syringe FLUSH PRN (15:02)
[2024-10-09] MEDS ORDERED: Sodium Chloride 0.9% 20 ML SDV IV PRN (15:02)
[2024-10-09] MEDS: Aspirin 81 MG Tab.Chew PO ONE (15:25)
[2024-10-09 15:46] LABS: BASOPHILS ABSOLUTE AUTO 0.07 K/uL (0.00-0.20); BASOPHILS PERCENT AUTO 0.9 % (0.0-1.0); EOSINOPHILS ABSOLUTE AUTO 0.19 K/uL (0.00-0.45); EOSINOPHILS PERCENT AUTO 2.5 % (0.0-6.0); HEMATOCRIT 37.6 % (42.0-52.0); IMMATURE GRAN ABSOLUTE AUTO 0.02 K/uL (0.00-0.05); IMMATURE GRAN PERCENT AUTO 0.3 % (0.0-0.4); LYMPHOCYTES ABSOLUTE AUTO 1.62 K/uL (1.00-4.80); LYMPHOCYTES PERCENT AUTO 21.7 % (24.0-44.0); MEAN CORPUSCULAR HGB CONC 34.6 g/dL (32.0-36.0); MEAN CORPUSCULAR VOLUME 89.7 fL (83.0-99.0); MEAN PLATELET VOLUME 9.5 fL (9.4-12.4); MONOCYTES ABSOLUTE AUTO 0.59 K/uL (0.00-0.80); MONOCYTES PERCENT AUTO 7.9 % (0.0-8.0); NEUTROPHILS ABSOLUTE AUTO 4.99 K/uL (1.80-7.70); NEUTROPHILS PERCENT AUTO 66.7 % (41.0-71.0); PLATELET COUNT,PLT 325 K/uL (150-400); RED BLOOD CELL COUNT 4.19 M/uL (4.52-5.90); WHITE BLOOD CELL COUNT,WBC 7.48 K/uL (3.9-11.3)
[2024-10-09 16:03] LABS: D-DIMER QUANTITATIVE 0.34 mg/L FEU (0.00-0.50); INR 0.95 (0.86-1.11); PTT,PARTIAL THROMBOPLSTIN TIME 26.2 SEC (23.9-30.7)
[2024-10-09 16:17] LABS: A/G RATIO 1.2 (0.9-1.6); ALBUMIN 3.8 g/dL (3.4-5.0); BILIRUBIN TOTAL 0.4 mg/dL (0.2-1.0); CALCIUM 9.8 mg/dL (8.5-10.1); CARBON DIOXIDE,CO2 28.5 mmol/L (21.0-32.0); CREATININE 1.2 mg/dL (0.8-1.3); EST CRCL DRUG DOSING (CG) 70.06 mL/min; MAGNESIUM 2.3 mg/dL (1.8-2.4); POTASSIUM,K 3.9 mmol/L (3.5-5.1); PROTEIN TOTAL,TP 6.9 g/dL (6.4-8.2)
[2024-10-09] MEDS: Sodium Chloride 0.9% 1,000 ML IV ONE (16:35)
[2024-10-09] MEDS: Iopamidol 755 MG/ML 500 ML Multipack Bottle IVPUSH STA (17:10)
[2024-10-09] MEDS: Baclofen 10 MG Tab PO ONE (18:50)
[2024-10-09] MEDS: Ketorolac 30 MG/ML SDV IVPUSH ONE (19:42)
[2024-10-09] MEDS: Acetaminophen/HYDROcodone 325-10 MG Tab PO ONE (19:42)
[2024-10-09 19:46] VITALS: PULSE 58
[2024-10-09 20:46] VITALS: BP 128/92
== END 2024-10-09 20:47 | disposition home or self-care (01) ==
LOC: MW.ED 13:59
DX: M54.2 Cervicalgia (principal); M25.511 Pain in right shoulder; I10 Essential (primary) hypertension; E78.00 Pure hypercholesterolemia, unspecified; M19.90 Unspecified osteoarthritis, unspecified site; Z79.82 Long term (current) use of aspirin; Z79.899 Other long term (current) drug therapy
CPT/HCPCS: 36415; 70496; 70498; 80053; 82550; 83605; 83690; 83735; 84484; 85025; 85379; 85610; 85730; 93005; 96374; 99285; A9270; J1885; J7030; Q9967; 99284